=== PATIENT | male | born 1965 | race Caucasian/White ===

== ENCOUNTER 2024-08-30 10:07 | Emergency (ER) | payer MEDICARE, SELFPAY ==
--- NOTE | ~2024-08-30 | XR_ITS ---
EXAMINATION: XR ankle RT min 3V DATE: 08/30/2024 11:52 INDICATION: Right ankle injury and pain TECHNIQUE: Anteroposterior, oblique, mortise, and lateral views of the right ankle were obtained. COMPARISON: None. FINDINGS: Age-indeterminate mildly distracted small avulsion fracture at the tip of the medial malleolus. No ot her fractures identified. Joint spaces are normal. Small right ankle joint effusion. Moderate-sized A chilles and plantar calcaneal spurs. There are soft tissue swelling about the lateral malleolus. IMPRESSION: 1. Small mildly distracted avulsion fracture fragment at the tip of the medial malleolus, age-indeter minate but would favor chronic. 2. Soft tissue swelling about the lateral malleolus and small ankle joint effusion. Reviewed, dictated and finalized at location B. IMPRESSION: 1. Small mildly distracted avulsion fracture fragment at the tip of the medial malleolus, age-indeterminate but would favor chronic. 2. Soft tissue swelling about the lateral malleolus and small ankle joint effus ion.
[2024-08-30 10:27] VITALS: BP 167/90; PULSE 71; RESP 20; TEMP 36.5; O2SAT 96
--- OUTSIDE RECORDS SUMMARY | 2024-08-30 11:24 | XMS_ITS | Referral Summary ---
Author Organization [facility] Address [address] [place] [id number] Care Team Providers Care Machine Design Checker Name Role Phone Justin Myles MD Primary Care Provider [phone] Encounters Date Type Department Care Team Description 08/17/2024 Results Follow-Up [facility] Medical [facility] Internal Medicine [address] [place] [phone] Justin Myles MD 08/10/2024 Orders Only [facility] Health Information Management [address] [place] [phone] Justin Myles MD 08/10/2024 Telephone [facility] Medical [facility] Internal Medicine [address] [place] [phone] Justin Myles MD Medication Request 07/15/2024 8:00 AM CDT Office Visit [facility] Medical [facility] Internal Medicine [address] [place] [phone] Justin Myles MD Coronary artery disease involving [place] coronary artery of [place] heart without angina pectoris (Primary Dx); Dyslipidemia; Hypertension, essential; Obstructive sleep apnea; Tobacco abuse; Screening for lung cancer; Anxiety; Prostate cancer screening; Actinic keratosis; Common cold; Primary osteoarthritis of both knees 07/08/2024 Orders Only [facility] Health Information Management [address] [place] [address] Justin Myles MD from Last 3 Months Allergies Active Allergy Reactions Criticality Noted Date Comments Iodinated Contrast Media Unknown High 10/26/2018 Niacin Unknown 10/26/2018 Prednisone Unknown High 10/26/2018 Sertraline Unknown Medium 01/16/2024 Nightmares Medications fluticasone propionate (FLONASE) 50 mcg/actuation nasal spray 1 spray daily Active omega 8-mbg-ero-fish oil 1,000 mg (120 mg-180 mg) capsule Take 2 capsules (2,000 mg total) by mouth 2 (two) times a day 0 Active aspirin 325 mg tablet Take 1 tablet (325 mg total) by mouth daily Active metoprolol tartrate (LOPRESSOR) 25 mg immediate release tablet TAKE 1 TABLET BY MOUTH TWICE A DAY 200 tablet 1 4 Active clopidogreL (PLAVIX) 75 mg tablet TAKE 1 TABLET BY MOUTH EVERY DAY 100 tablet 1 4 Active rosuvastatin (CRESTOR) 10 mg tablet TAKE 1 TABLET BY MOUTH EVERY DAY 100 tablet 1 4 Active traMADoL (ULTRAM) 50 mg tablet Take 1 tablet (50 mg total) by mouth every 8 (eight) hours as needed for pain 21 tablet 5 Active albuterol HFA (PROVENTIL HFA,VENTOLIN HFA,PROAIR HFA) 90 mcg/actuation inhaler INHALE 2 PUFFS BY MOUTH EVERY 8 HOURS NEEDED FOR WHEEZING 25.5 each 5 Active ramipriL (ALTACE) 5 mg capsule Take 1 capsule (5 mg total) by mouth daily 90 capsule 1 5 025 Active enalapril (VASOTEC) 20 mg tablet Please specify directions, refills and quantity 90 tablet 1 4 025 Discontinued Active Problems Problem Noted Date Diagnosed Date Hidradenitis 03/22/2024 Assessment & Plan (03/22/2024 8:54 AM PRODUCT CONSULTANT): Patient has hidradenitis. The lesions in the right axillary area are healing well and now he has new lesion in the left axillary area. We will start him on doxycycline 100 mg b.i.d. for 10 days and advised to keep the area dry all the time and will make him a referral to see a brownfield program coordinator for further management of hidradenitis Abscess 03/08/2024 Assessment & Plan (03/08/2024 12:15 PM PRODUCT CONSULTANT): Patient has an abscess in the right armpit area. He said it drained large amount of pus. Currently there is healing abscess with no drainage or fluctuation. There is swollen lymph nodes. Will start him on Augmentin 875 mg twice daily for 15 days. Patient was advised to keep that area dry and clean all the time. Screening for lung cancer 01/16/2024 Assessment & Plan (07/15/2024 7:20 AM CDT): Lung scan was ordered. Patient did not have it done. He understands risks including cancer. Assessment & Plan (01/16/2024 8:59 AM CDT): Discussed lung cancer screening with patient and he agrees to proceed. Lung scan was ordered Anxiety 07/16/2023 Assessment & Plan (01/16/2024 8:58 AM CDT): Patient stopped Zoloft because it caused him nightmares. He likes to try different medication. We will start him on Cymbalta 20 mg daily. He will call for persistent symptoms Assessment & Plan (07/16/2023 8:57 AM CDT): Patient with increased anxiety and stress because family issues. Will start him on Zoloft 50 mg daily. Patient to call us back in 1 month for persistent symptoms. Actinic keratosis 01/15/2023 Assessment & Plan (07/15/2024 10:31 AM CDT): Patient has actinic keratosis lesion on the right shoulder and 1 on the left ear and both were treated liquid nitrogen. Patient is followed by brownfield program coordinator on a regular basis. Assessment & Plan (01/15/2023 9:19 AM CDT): Patient has actinic keratosis lesion on the right shoulder. It was treated with liquid nitrogen BMI 30.0-30.9,adult 07/15/2022 Non-recurrent acute serous otitis media of right ear 07/15/2022 Assessment & Plan (07/15/2022 12:16 PM CDT): Patient with otitis media. Will start him on Ceftin 250 mg twice daily for 7 days. Call for persistent symptoms. Acute pain of right shoulder 01/03/2021 Assessment & Plan (01/03/2021 8:47 AM CDT): Patient sprained his right shoulder. Exam is essentially unremarkable with no tenderness and he has full range of motion. He can take tramadol as needed for pain. Patient will call if he has persistent symptoms. Common cold 06/15/2019 Assessment & Plan (07/15/2024 10:32 AM CDT): Patient with cold symptoms for over a week with thick yellow mucus. Will start him on amoxicillin 500 mg 3 times daily for 7 days. Call for persistent symptoms Assessment & Plan (01/16/2024 8:58 AM CDT): Patient with sinus complaints for the last 2 weeks. Will start him on amoxicillin 500 mg 3 times daily for 7 days and he will call for persistent symptoms Assessment & Plan (01/15/2023 9:19 AM CDT): Patient with upper respiratory infection. He has colored mucus. Will start him on amoxicillin 500 mg 3 times daily for 10 days for possible sinusitis. Assessment & Plan (01/03/2021 8:46 AM CDT): Will start him on amoxicillin 500 mg 3 times daily for 7 days and he will call for persistent symptoms Assessment & Plan (06/15/2019 9:29 AM PRODUCT CONSULTANT): The patient has upper respiratory infection and he will be started on amoxicillin 500 mg 3 times daily for 10 days and we will refill Proventil inhaler as needed for cough. Colon cancer screening 06/15/2019 Assessment & Plan (07/15/2023 5:00 PM CDT): Advised the patient to have Cologuard test done as soon as possible. He understands risk of colon cancer Assessment & Plan (07/15/2022 12:14 PM CDT): Advised the patient to have Cologuard test done as soon as possible. He understands risk of colon cancer Assessment & Plan (01/15/2022 8:57 AM CDT): Patient did not have colonoscopy done. He understands risk including cancer. Advised to call the supply chain program manager office and schedule an appointment. Assessment & Plan (07/03/2021 8:32 AM PRODUCT CONSULTANT): We will order colo guard test again. He understands risk of cancer Assessment & Plan (07/03/2020 8:51 AM PRODUCT CONSULTANT): We ordered colo guard test again Assessment & Plan (01/04/2020 9:54 AM CDT): The patient was advised to do the Cologuard test as soon as possible and he understands the risk of colon cancer Assessment & Plan (06/15/2019 9:30 AM PRODUCT CONSULTANT): The patient declined colonoscopy. We ordered colo guard in the past but he did not do the test. We will reorder the test and the patient understands the risks including cancer Tobacco abuse 02/24/2019 Assessment & Plan (07/15/2024 7:21 AM CDT): Discussed again the importance of complete smoking cessation. Patient is not interested at this time Assessment & Plan (01/16/2024 8:59 AM CDT): Discussed again the importance of complete smoking cessation. Patient is not interested at this time Assessment & Plan (01/15/2023 7:52 AM CDT): Discussed again the importance of complete smoking cessation. Assessment & Plan (07/15/2022 7:50 AM CDT): Discussed smoking cessation and different methods to help with that. Discussed the risks of smoking including COPD, CAD and lung cancer etc. Total time spent was 4 minutes. Assessment & Plan (01/15/2022 8:57 AM CDT): Discussed smoking cessation and different methods to help with that. Discussed the risks of smoking including COPD, CAD and lung cancer etc. Total time spent was 3 minutes. Assessment & Plan (07/03/2021 8:34 AM PRODUCT CONSULTANT): Discussed smoking cessation and different methods to help with that. Discussed the risks of smoking including COPD, CAD and lung cancer etc. Total time spent was 4 minutes. Assessment & Plan (01/03/2021 8:46 AM CDT): Discussed smoking cessation and different methods to help with that. Discussed the risks of smoking including COPD, CAD and lung cancer etc. Total time spent was 3 minutes. Assessment & Plan (07/03/2020 8:51 AM PRODUCT CONSULTANT): Discussed smoking cessation and different methods to help with that. Discussed the risks of smoking including COPD, CAD and lung cancer etc. Total time spent was 4 minutes. Assessment & Plan (01/04/2020 9:54 AM CDT): Discussed smoking cessation and different methods to help with that. Discussed the risks of smoking including COPD, CAD and lung cancer etc. Total time spent was 4 minutes. Assessment & Plan (06/15/2019 9:29 AM PRODUCT CONSULTANT): The patient said that he smokes less than 10 cigarettes daily. Discussed smoking cessation and different methods to help with that. Discussed the risks of smoking including COPD, CAD and lung cancer etc. Total time spent was 3 minutes. Primary osteoarthritis of both knees 10/20/2017 Assessment & Plan (07/15/2024 10:32 AM CDT): Managed by the orthopedic doctor Assessment & Plan (01/16/2024 7:31 AM CDT): He takes tramadol p.r.n. with good relief Assessment & Plan (07/15/2023 5:01 PM CDT): He takes tramadol p.r.n. with good relief Assessment & Plan (01/15/2022 8:57 AM CDT): He takes tramadol p.r.n. with good relief Assessment & Plan (07/03/2021 8:34 AM PRODUCT CONSULTANT): Patient takes tramadol on occasional basis with good relief Assessment & Plan (01/03/2021 8:46 AM CDT): He takes tramadol as needed with good relief relief Assessment & Plan (07/03/2020 8:51 AM PRODUCT CONSULTANT): Patient uses tramadol on occasional basis with good relief Assessment & Plan (01/04/2020 9:54 AM CDT): The patient takes tramadol off and on with good relief History of myocardial infarction 11/13/2015 Obstructive sleep apnea 11/13/2015 Assessment & Plan (07/15/2024 7:20 AM CDT): Patient does not use CPAP machine on regular basis. He understands risks including congestive heart failure and pulmonary hypertension etc. Assessment & Plan (01/16/2024 7:30 AM CDT): Patient does not use CPAP machine on regular basis. He understands risks including congestive heart failure and pulmonary hypertension etc. Assessment & Plan (07/15/2023 5:00 PM CDT): Patient does not use CPAP machine on regular basis. He understands risks including congestive heart failure and pulmonary hypertension etc. Assessment & Plan (01/15/2023 7:52 AM CDT): Patient does not use CPAP machine on regular basis. He understands risks including congestive heart failure and pulmonary hypertension etc. Assessment & Plan (07/15/2022 7:50 AM CDT): Patient does not use CPAP machine on regular basis Assessment & Plan (01/15/2022 8:57 AM CDT): Patient does not use CPAP machine on regular basis Assessment & Plan (07/03/2021 8:33 AM PRODUCT CONSULTANT): He does not use CPAP machine. He understands risks including congestive heart failure Assessment & Plan (01/03/2021 8:46 AM CDT): Patient does not use CPAP machine and he understands the risks Assessment & Plan (07/03/2020 8:51 AM PRODUCT CONSULTANT): Patient with history of obstructive sleep apnea. He does not use CPAP machine. He is not interested. He understands risks. S/P coronary artery stent placement 11/13/2015 CAD (coronary artery disease) 11/08/2015 Assessment & Plan (07/15/2024 7:20 AM CDT): Status post stent placement. Continue current medications. Follow up with the furniture and bedding inspector Assessment & Plan (01/16/2024 8:58 AM CDT): Status post stent placement. Continue current medications. Follow up with the furniture and bedding inspector Assessment & Plan (07/15/2023 4:59 PM CDT): Status post stent placement. Continue current medications. Follow up with the furniture and bedding inspector Assessment & Plan (01/15/2023 7:51 AM CDT): Status post stent placement. Continue current medications. Follow up with the furniture and bedding inspector Assessment & Plan (07/15/2022 7:49 AM CDT): Status post stent placement. Continue current medications. Follow up with the furniture and bedding inspector Assessment & Plan (01/15/2022 8:56 AM CDT): Status post stent placement. Continue current medications. Follow up with the furniture and bedding inspector Assessment & Plan (07/03/2021 8:32 AM PRODUCT CONSULTANT): Status post stent placement. Continue aspirin and Plavix. Advised to follow up with the furniture and bedding inspector. Discussed importance of smoking cessation Assessment & Plan (01/03/2021 8:46 AM CDT): Status post angioplasty. He is on aspirin and Plavix. Advised to follow-up with furniture and bedding inspector Assessment & Plan (07/03/2020 8:50 AM PRODUCT CONSULTANT): Status post stent placement. Discussed compliance with medications. Patient is followed by the furniture and bedding inspector. Assessment & Plan (01/04/2020 9:53 AM CDT): Status post stent placement have. He is maintained on aspirin and Plavix and followed by the furniture and bedding inspector. He is asymptomatic. We discussed smoking cessation Assessment & Plan (06/15/2019 9:29 AM PRODUCT CONSULTANT): Status post stent placement 7 years ago. He is maintained on aspirin and Plavix. He is asymptomatic. Dyslipidemia 11/08/2015 Assessment & Plan (07/15/2024 7:20 AM CDT): Controlled on current medications. Continue low-fat diet. Will continue to monitor . Assessment & Plan (01/16/2024 7:30 AM CDT): Controlled on current medications. Continue low-fat diet. Will continue to monitor . Assessment & Plan (07/15/2023 5:00 PM CDT): Controlled on current medications. Continue low-fat diet. Will continue to monitor . Assessment & Plan (01/15/2023 7:51 AM CDT): Controlled on current medications. Continue low-fat diet. Will continue to monitor . Assessment & Plan (07/15/2022 7:49 AM CDT): Controlled on current medications. Continue low-fat diet. Will continue to monitor . Assessment & Plan (01/15/2022 8:56 AM CDT): Controlled on current medications. Continue low-fat diet. Will continue to monitor . Assessment & Plan (07/03/2021 8:32 AM PRODUCT CONSULTANT): Controlled on current medications. Continue low-fat diet. Will continue to monitor . Assessment & Plan (01/03/2021 8:46 AM CDT): Controlled on current medications. Continue low-fat diet. Will continue to monitor . Assessment & Plan (07/03/2020 8:50 AM PRODUCT CONSULTANT): Controlled on current medications. Continue low-fat diet. Will continue to monitor . Assessment & Plan (01/04/2020 9:53 AM CDT): Controlled on current medications. Continue low-fat diet. Will continue to monitor . Advised to do the blood work as soon as possible. Discussed the risk of noncompliance with medical recommendations Assessment & Plan (06/15/2019 9:29 AM PRODUCT CONSULTANT): Controlled on current medications. Continue low-fat diet. Will continue to monitor . Hypertension, essential 11/08/2015 Assessment & Plan (07/15/2024 7:20 AM CDT): Continue current medications. Discussed low-salt diet. Discussed exercise on regular basis. Will continue to monitor Assessment & Plan (01/16/2024 7:30 AM CDT): Continue current medications. Discussed low-salt diet. Discussed exercise on regular basis. Will continue to monitor Assessment & Plan (07/15/2023 5:00 PM CDT): Continue current medications. Discussed low-salt diet. Discussed exercise on regular basis. Will continue to monitor Assessment & Plan (01/15/2023 7:51 AM CDT): Continue current medications. Discussed low-salt diet. Discussed exercise on regular basis. Will continue to monitor Assessment & Plan (07/15/2022 7:49 AM CDT): Continue current medications. Discussed low-salt diet. Discussed exercise on regular basis. Will continue to monitor Assessment & Plan (01/15/2022 8:56 AM CDT): Continue current medications. Discussed low-salt diet. Discussed exercise on regular basis. Will continue to monitor Assessment & Plan (07/03/2021 8:33 AM PRODUCT CONSULTANT): Continue current medications. Discussed low-salt diet. Discussed exercise on regular basis. Will continue to monitor Assessment & Plan (01/03/2021 8:46 AM CDT): Continue current medications. Discussed low-salt diet. Discussed exercise on regular basis. Will continue to monitor Assessment & Plan (07/03/2020 8:51 AM PRODUCT CONSULTANT): Continue current medications. Discussed low-salt diet. Discussed exercise on regular basis. Will continue to monitor Assessment & Plan (01/04/2020 9:53 AM CDT): Continue current medications. Discussed low-salt diet. Discussed exercise on regular basis. Will continue to monitor Allergic rhinitis 09/14/2015 Assessment & Plan (07/03/2021 8:33 AM PRODUCT CONSULTANT): He uses Flonase on regular basis with good results Resolved Problems Problem Noted Date Diagnosed Date Resolved Date Smoking 11/13/2015 02/24/2019 Overview (01/26/2019): Counseled for smoking cessation Immunizations Immunization Administration Dates Next Due DTaP 11/15/2013 Influenza, Unspecified 03/08/2024(Deferr ed: Patient decision),02/06/2023(Deferred: Patient decision),01/15/2023(Deferred: Patient decision) Social History Tobacco Use Types Packs/Day Years Used Date Smoking Tobacco: Every Day Cigarettes 2 46.3 Started: 1977 Passive Smoke Exposure: Current Smokeless Tobacco: Never Tobacco Cessation:Ready to Q uit: No; Counseling Given: No AUDIT-C Answer Date Recorded Q1: How often do you have a drink containing alcohol? Never 07/15/2024 Q2: How many drinks containi ng alcohol do you have on a typical day when you are drinking? Patient does not drink Q3: How often do you have si x or more drinks on one occasion? Never 07/15/2024 PHQ-2 Answer Date Recorded PHQ-2 Total Score (If total score is 3 or more points, staff should administer the PHQ-9) 0 07/15/2024 Sex and Gender Information Value Date Recorded Sex Assigned at Not on file Legal Sex Male 4:28 PM PRODUCT CONSULTANT Gender Identity Male 08/19/2023 5:41 PM CDT Sexual Orientation Not on file Last Filed Vital Signs Vital Sign Reading Time Taken Comments Blood Pressure 130/74 07/15/2024 8:24 AM CDT Pulse 66 07/15/2024 8:24 AM CDT Temperature 37 C (98.6 F) 07/15/2024 8:24 AM CDT Respiratory Rate 16 07/15/2024 8:24 AM CDT Oxygen Saturation 96% 07/15/2024 8:24 AM CDT Inhaled Oxygen Concentration - - Weight 113 kg (249 lb 1.6 oz) 07/15/2024 8:24 AM CDT Height 190.5 cm (6' 3 ) 07/15/2024 8:24 AM CDT Body Mass Index 31.14 07/15/2024 8:24 AM CDT Plan of Treatment Not on file Procedures Procedure Name Priority Date/Time Associated Diagnosis Comments SCAN - RADIOLOGY/IMAGING 08/10/2024 SCAN - RADIOLOGY/IMAGING 07/08/2024 HEPATITIS C ANTIBODY Routine 01/16/2024 9:21 AM CDT Encounter for hepatitis C screening test for low risk patient STOOL DNA COLOGUARD Routine 08/14/2023 7:05 AM CDT Colon cancer screening PSA SCREEN Routine 07/15/2023 6:12 AM CDT Prostate cancer screening from Last 3 Months or Most Recently Relevant to Health Maintenance Results * SCAN - RADIOLOGY/IMAGING (08/10/2024) Anatomical Region Laterality Modality Other us Justin Myles MD Final Resul t * SCAN - RADIOLOGY/IMAGING (07/08/2024) Anatomical Region Laterality Modality Other us Justin Myles MD Final Resul t * Hepatitis C antibody Blood (01/16/2024 9:21 AM CDT) Hep C Ab Nonreactive Nonreactive Comment: Antibodies to HCV not detected. Does NOT exclude the possibility of recent exposure to HCV. Current interpretive data was last revised on 22 Interpretive Data Nonreactive: Antibodies to HCV not detected. Does NOT exclude the possibility of recent exposure to HCV. Equivocal: Equivocal for HCV antibodies. Supplemental molecular testing will be automatically performed to determine infection status in accordance with current CDC screening recommendations. Reactive: Positive for HCV antibodies. This may represent current or past HCV infection. Supplemental molecular testing will be automatically performed to determine current infection status in accordance with current CDC screening recommendations. Interpretive data was last revised on 2019. Blood 01/16/2024 9:21 AM CDT 01/16/2024 9:45 AM CDT us Justin Myles MD LAB MICROBIOLOGY - GENERAL ORDERABLES Final Result [id number] [facility] Department [place] [address] * Stool DNA - Cologuard (08/14/2023 7:05 AM CDT) Pathologist [facility] Stool DNA - Cologuard Negative Negative [employer] (CLIA #:[id number]) Comment: NEGATIVE TEST RESULT. A negative Cologuard result indicates a low likelihood that a colorectal cancer (CRC) or advanced adenoma (adenomatous polyps with more advanced pre-malignant features) is present. The chance that a person with a negative Cologuard test has a colorectal cancer is less than 1 in 1500 (negative predictive value >99.9%) or has an advanced adenoma is less than 5.3% (negative predictive value 94.7%). These data are based on a prospective cross-sectional study of 10,000 individuals at average risk for colorectal cancer who were screened with both Cologuard and colonoscopy. (Leanna Michael et al, N Engl J Med 2014;370(14):9295-8931) The normal value (reference range) for this assay is negative. COLOGUARD RE-SCREENING RECOMMENDATION: Periodic colorectal cancer screening is an important part of preventive healthcare for asymptomatic individuals at average risk for colorectal cancer. Following a negative Cologuard result, the [place] [employer] and U.S. Multi-Society Task Force screening guidelines recommend a Cologuard re-screening interval of 3 years. References: [place] [employer] Guideline for Colorectal Cancer Screening: https://www.cancer.org/cancer/vdhqd-gryfgv-sqoofa/uphlgjkit-dmuulxyyi-dlamctf/ac s-rec ommendations.html.; Guido DK, Savana RUFFIN, Nicki BrunoK, Colorectal Cancer Screening: Recommendations for Physicians and Patients from the U.S. Multi-Society Task Force on Colorectal Cancer Screening , Am J Gastroenterology 2017; 112:7348-7504. TEST DESCRIPTION: Composite algorithmic analysis of stool DNA-biomarkers with hemoglobin immunoassay. Quantitative values of individual biomarkers are not reportable and are not associated with individual biomarker result reference ranges. Cologuard is intended for colorectal cancer screening of adults of either sex, 45 years or older, who are at average-risk for colorectal cancer (CRC). Cologuard has been approved for use by the U.S. FDA. The performance of Cologuard was established in a cross sectional study of average-risk adults aged 50-84. Cologuard performance in patients ages 45 to 49 years was estimated by sub-group analysis of near-age groups. Colonoscopies performed for a positive result may find as the most clinically significant lesion: colorectal cancer [4.0%], advanced adenoma (including sessile serrated polyps greater than or equal to 1cm diameter) [20%] or non- advanced adenoma [31%]; or no colorectal neoplasia [45%]. These estimates are derived from a prospective cross-sectional screening study of 10,000 individuals at average risk for colorectal cancer who were screened with both Cologuard and colonoscopy. (Leanna Ramos al, N Engl J Med 2014;370(14):0178-0747.) Cologuard may produce a false negative or false positive result (no colorectal cancer or precancerous polyp present at colonoscopy follow up). A negative Cologuard test result does not guarantee the absence of CRC or advanced adenoma (pre-cancer). The current Cologuard screening interval is every 3 years. ([place] [employer] and [employer]). Cologuard performance data in a 10,000 patient pivotal study using colonoscopy as the reference method can be accessed at the following location: www.[email or web address]/results. Additional description of the Cologuard test process, warnings and precautions can be found at [email or web address]. Stool 08/14/2023 7:05 AM CDT 08/15/2023 10:18 AM CDT Justin Myles MD LAB BODY FLUIDS AND STOOLS ORDERABLES Final Result [employer] (CLIA #:[id number]) [place] [address] * PSA screen (07/15/2023 6:12 AM CDT) PSA-Total 0.97 <=3.90 ng/mL Comment: Interpretive Data AGE SEX REFERENCE INTERVAL 0 minutes-150 years Female None 0 minutes-49 years Male None 50-59 years Male 0-3.90 60-69 years Male 0-5.40 70-79 years Male 0-6.20 80-150 years Male 0-6.20 The Juno PSA Total assay procedure was used. Results from different manufacturers or methods may not be comparable. Serial testing should be performed using the same method. Current interpretive data last revised 21. Blood 07/15/2023 6:12 AM CDT 07/15/2023 6:35 AM CDT Justin Myles MD LAB BLOOD ORDERABLES Final Result [facility] [address] [facility] Department [place] [address] from Last 3 Months or Most Recently Relevant to Health Maintenance Insurance [facility] [employer] MEDICARE GOLD Care Teams Machine Design Checker Relationship Specialty Start Date End Date Justin Myles MD [address] [place] [address] PCP - General Internal Medicine 07/27/18
--- OUTSIDE RECORDS SUMMARY | 2024-08-30 11:24 | XMS_ITS | Encounter Summary ---
Author Organization [facility] Healthcare Address [address] [place] [address] Care Team Providers Care Developing Machine Operator Name Role Phone Justin Myles MD Primary Care Provider [phone] Encounter Details Date Type Department Care Team (Late st Contact Info) Description 08/17/2024 Results Follow-Up [facility] Internal Medicine [address] [place] [phone] Justin Myles MD [address] [place] [id number] Social History Tobacco Use Types Packs/Day Years Used Date Smoking Tobacco: Every Day Cigarettes 2 46.3 Started: 1977 Passive Smoke Exposure: Current Smokeless Tobacco: Never AUDIT-C Answer Date Recorded Q1: How often [...] on file Legal Sex Male 4:28 PM [employer]OM[employer] Gender Identity Male 08/19/2023 5:41 PM CDT Sexual Orientation Not on file documented as of this encounter Plan of Treatment Not on file documented as of this encounter Visit Diagnoses Not on filedocumented in this encounter Care Teams Developing Machine Operator Relationship Specialty Start Date End Date Justin Myles MD [address] [place] [address] [place] [id number] PCP - General Internal Medicine 07/27/18 documented as of this encounter
--- OUTSIDE RECORDS SUMMARY | 2024-08-30 11:24 | XMS_ITS | Clinical Summary ---
Author Organization [facility] Address [address] [place] [id number] Care Team Providers Care Information Technology Manager Name Role Phone Justin Myles MD Primary Care Provider [phone] Allergies Active Allergy Reactions Criticality Noted Date Comments Gadolinium Derivatives Unknown 04/19/2015 Iodinated Contrast Media Unknown High 10/26/2018 Niacin Unknown 10/26/2018 Prednisone Unknown High 10/26/2018 Sertraline Unknown Medium 01/16/2024 Nightmares Medications albuterol sulfate HFA 108 (90 Base) MCG/ACT inhaler INHALE 2 PUFFS BY MOUTH EVERY 8 HOURS NEEDED FOR WHEEZING 4 Active aspirin 325 MG tablet Aspirin 325 MG Oral [id number] 15Active Active clopidogrel (PLAVIX) 75 MG tablet Take 1 tablet (75 mg total) by mouth daily. 5 Active doxycycline hyclate (VIBRAMYCIN) 100 MG capsule TAKE 1 TABLET/CAPSULE (100 MG TOTAL) BY MOUTH 2 (TWO) TIMES A DAY FOR 10 DAYS 4 Active DULoxetine (CYMBALTA) 20 MG capsule Take 1 capsule (20 mg total) by mouth daily. 4 Active enalapril (VASOTEC) 20 MG tablet Please specify directions, refills and quantity 4 Active fluticasone propionate (FLONASE) 50 MCG/ACT nasal spray 1 spray daily. Activ e hydrocortisone 2.5 % cream Insert into the rectum 3 (three) times a day as needed for hemorrhoids (rectal discomfort) Apply to affected areas 4 Active metoprolol tartrate (LOPRESSOR) 25 MG tablet Take 1 tablet (25 mg total) by mouth 2 (two) times daily. 5 Active fish oil (OMEGA-3 FATTY ACID) 1000 MG Cap capsule Fish Oil 1000 MG Oral [id number] 015Active Active ramipril (ALTACE) 5 MG capsule Take 1 capsule (5 mg total) by mouth daily. 4 Active rosuvastatin (CRESTOR) 10 MG tablet 5 Active SODIUM FLUORIDE 5000 PPM 1.1 % Paste BRUSH ONCE DAILY FOR 2 MINUTES AND SPIT OUT AFTER USE. DO NOT EAT, DRINK, OR RINSE MOUTH FOR 30 MINS 4 Active traMADol (ULTRAM) 50 MG tablet take 1 tablet (50 mg total) by mouth every 8 (eight) hours as needed for pain. 4 Active hydrocortisone (ANUSOL-HC) 2.5 % rectal cream INSERT IN THE RECTUM 3 TIMES A DAY NEEDED FOR HEMORRHOID/RECTA L DISCOMFORT APPLY TO AFFECTED AREA 4 Active Hospital, Clinic, or Other Facility Administered Medication Ordered Dose Route Frequency Start Date End Date Status hyaluronate sodium (EUFLEXXA) injection 20 mgIndications:Primary osteoarthritis of left knee 20 mg IX Once 08/03/2024 08/04/19 25 Ended hyaluronate sodium (EUFLEXXA) injection 20 mgIndications:Primary osteoarthritis of right knee 20 mg IX Once 08/03/2024 08/03/2024 Ended hyaluronate sodium (EUFLEXXA) injection 20 mgIndications:Primary osteoarthritis of left knee 20 mg IX Once 08/10/2024 08/11/19 25 Ended hyaluronate sodium (EUFLEXXA) injection 20 mgIndications:Primary osteoarthritis of right knee 20 mg IX Once 08/10/2024 08/10/2024 Ended hyaluronate sodium (EUFLEXXA) injection 20 mgIndications:Primary osteoarthritis of left knee 20 mg IX Once 08/17/2024 08/18/19 25 Ended hyaluronate sodium (EUFLEXXA) injection 20 mgIndications:Primary osteoarthritis of right knee 20 mg IX Once 08/17/2024 08/17/2024 Ended Active Problems Problem Noted Date Diagnosed Date Primary osteoarthritis of left knee 07/08/2024 Primary osteoarthritis of right knee 07/08/2024 Encounters Date Type Department Care Team Description 08/17/2024 7:40 AM CDT Office Visit [facility] Orthopedic & Sports Medicine - [place] [address] [place] [address] Mendoza Luna PA-C Follow Up (BL Knee Euflexxa 3) 08/17/2024 Scan [facility] Scanned, [facility] 08/17/2024 Travel 08/10/2024 7:40 AM CDT Office Visit [facility] - [place] [address] [place] [address] Mendoza Luna PA-C Follow Up (BL Knee Euflexxa 2) 08/10/2024 Scan [facility] SRVCS Scanned, [facility] 08/10/2024 Travel 08/06/2024 Orders Only [facility] - [place] [address] [place] [address] Mendoza Luna PA-C 08/03/2024 7:40 AM CDT Office Visit [facility] - [place] [address] [place] [address] Mendoza Luna PA-C Follow Up (BL Knees Euflexxa 1) 08/03/2024 Orders Only [facility] - [place] [address] [place] [address] Mendoza Luna PA-C 08/03/2024 Scan [facility] Scanned, [facility] 08/03/2024 Travel 07/08/2024 8:00 AM CONSTRUCTION CREW MEMBER Office Visit [facility] - [place] [address] [place] [address] Mendoza Luna PA-C New Patient (Bilateral knees) 07/08/2024 Scan [facility] Scanned, [facility] 07/08/2024 Travel 07/01/2024 Orders Only [facility] - [place] [address] [place] [address] Mendoza Luna PA-C from Last 3 Months Family History Medical History Relation Comments Cancer Father Diabetes Father Other Father suicide Father Cancer Mother Diabetes Mother Kidney Disease Mother Liver Disease Mother liver failure Sister Relation Status Comments Father Mother Sister Social History Tobacco Use Types Packs/Day Years Used Date Smoking Tobacco: Every Day Cigarettes Passive Smoke Exposure: Never Smokeless Tobacco: Never Tobacco Cessation:Ready to Q uit: Yes; Counseling Given: Yes Alcohol Use Standard Drinks/Week Comments Not Currently 0 (1 standard drink = 0.6 oz pur e alcohol) PHQ-2 Answer Date Recorded Patient Health Questionnaire-2 Score 0 08/03/2024 Sex and Gender Information Value Date Recorded Sex Assigned at Male 07/08/2024 8:10 AM [employer]BER Legal Sex Male 7:26 PM CDT Gender Identity Not on file Sexual Orientation Not on file Last Filed Vital Signs Vital Sign Reading Time Taken Comments Blood Pressure 129/75 08/17/2024 7:48 AM CDT Pulse 78 08/17/2024 7:48 AM CDT Temperature 37 C (98.6 F) 08/17/2024 7:48 AM CDT Respiratory Rate - - Oxygen Saturation 97% 08/17/2024 7:48 AM CDT Inhaled Oxygen Concentration - - Weight 114.9 kg (253 lb 3.2 oz) 08/17/2024 7:48 AM CDT Height 190.5 cm (6' 3 ) 08/17/2024 7:48 AM CDT Body Mass Index 31.65 08/17/2024 7:48 AM CDT Plan of Treatment Health Maintenance Due Date Last Done Comments Colorectal Cancer Screening Colonoscopy (10 Years) 1966 Annual Physical 1969 Hepatitis C 1984 Hepatitis B Vaccines (1 of 3 - 19+ 3-dose series) 1985 Pneumococcal Vaccine: 50+ Ye ars (1 of 2 - PCV) 1985 Zoster Vaccines (1 of 2) 2016 DTaP, Tdap and Td Vaccines ( 2 - Tdap) 11/16/2023 11/15/2013 COVID-19 Vaccine ( - 2023-2 5 season) 2024 PHQ-2 (Physician [facility]) Completed 08/03/2024 Meningococcal B Vaccine Aged Out No l onger eligible based on patient's age to complete this topic Meningococcal Vaccine Aged Out No brayden chantell eligible based on patient's age to complete this topic RSV Immunizations Under 20 Months Aged Out No longer eligible based on patient's age to complete this topic Procedures Procedure Name Priority Date/Time Associated Diagnosis Comments XR SHOULDER RT 3V Routine 08/10/2024 7:3 8 AM CDT Right shoulder pain, unspecified chronicity XR KNEE LT 3V Routine 07/08/2024 7:49 AM [employer]STRU[employer]BER Pain in both knees, unspecified chronicity XR KNEE RT 3V Routine 07/08/2024 7:49 AM [employer]STRUCTION [employer] MEMBER Pain in both knees, unspecified chronicity from Last 3 Months Results * XR SHOULDER RT 3V (08/10/2024 7:38 AM CDT) Anatomical Region Laterality Modality Shoulder Radiographic Aminata ging 08/10/2024 7:41 AM CDT Impressions 08/10/2024 7:41 AM CDT IMPRESSION: No acute findings Ordered By: MENDOZA LUNA Interpreted By: Trey Fowler MD, 08/10/2024 7:41 AM Narrative 08/10/2024 7:41 AM CDT 3 VIEWS OF THE RIGHT SHOULDER CLINICAL HISTORY: Pain COMPARISON: None 3 views of the right shoulder demonstrate the bony elements to be intact. There is no evidence of fracture or dislocation. The surrounding soft tissues appear normal. Procedure Note Trey Fowler MD - 08/10/2024 3 VIEWS OF THE RIGHT SHOULDER CLINICAL HISTORY: Pain COMPARISON: None 3 views of the right shoulder demonstrate the bony elements to be intact.There is no evidence of fracture or dislocation. The surrounding softtissues appear normal. IMPRESSION: No acute findings Ordered By: MENDOZA LUNA Interpreted By: Trey Fowler MD, 08/10/2024 7:41 AM us Mendoza Luna PA-C GENERAL IMAGING Final Result * XR KNEE LT 3V (07/08/2024 7:49 AM CONSTRUCTION CREW MEMBER) Anatomical Region Laterality Modality Knee Radiographic Aminata ging 07/08/2024 7:49 AM CONSTRUCTION CREW MEMBER Narrative 07/08/2024 7:56 AM CONSTRUCTION CREW MEMBER Examination: XR KNEE LT 3V, XR KNEE RT 3V Exam time: 07/08/2024 7:49 AM Clinical history: Bilateral knee pain Comparison: 02/14/2015 left knee Technique: Upright AP and lateral views of each knee. Bilateral sunrise views. Findings: On the left, medial and lateral joint spaces appear within normal limits. No evidence of marginal osseous defects. Patellofemoral joint space appears unremarkable. Chronic appearing enthesophyte at the patellar tendon insertion on the patella. No evidence of fracture or acute osseous abnormality. No radiographic evidence of joint effusion. Tiny hypertrophic spur dorsal superior patella. On the right, chronic-appearing enthesophyte patellar tendon insertion on the patella and the quadriceps tendon insertion on the patella. Tiny hypertrophic spur dorsal superior patella. Medial and lateral joint spaces appear within normal limits. Patellofemoral joint space appears unremarkable. No evidence of fracture or acute osseous abnormality. IMPRESSION: 1. No acute abnormality identified involving either knee. 2. Chronic changes as described. Referred By: Interpreted By: Skyler Soria MD, 07/08/2024 7:52 AM Procedure Note Skyler Soria MD - 07/08/2024 Examination: XR KNEE LT 3V, XR KNEE RT 3V Exam time: 07/08/2024 7:49 AM Clinical history: Bilateral knee pain Comparison: 02/14/2015 left knee Technique: Upright AP and lateral views of each knee. Bilateral sunriseviews. Findings: On the left, medial and lateral joint spaces appear withinnormal limits. No evidence of marginal osseous defects. Patellofemoraljoint space appears unremarkable. Chronic appearing enthesophyte at thepatellar tendon insertion on the patella. No evidence of fracture oracute osseous abnormality. No radiographic evidence of joint effusion.Tiny hypertrophic spur dorsal superior patella. On the right, chronic-appearing enthesophyte patellar tendon insertion onthe patella and the quadriceps tendon insertion on the patella. Tinyhypertrophic spur dorsal superior patella. Medial and lateral jointspaces appear within normal limits. Patellofemoral joint space appearsunremarkable. No evidence of fracture or acute osseous abnormality. IMPRESSION: 1. No acute abnormality identified involving either knee. 2. Chronic changes as described. Referred By: Interpreted By: Skyler Soria MD, 07/08/2024 7:52 AM us Mendoza Luna PA-C GENERAL IMAGING Final Result * XR KNEE RT 3V (07/08/2024 7:49 AM CONSTRUCTION CREW MEMBER) Anatomical Region Laterality Modality Knee Radiographic Aminata ging 07/08/2024 7:49 AM CONSTRUCTION CREW MEMBER Narrative 07/08/2024 7:56 AM CONSTRUCTION CREW MEMBER Examination: XR KNEE LT 3V, XR KNEE RT 3V Exam time: 07/08/2024 7:49 AM Clinical history: Bilateral knee pain Comparison: 02/14/2015 left knee Technique: Upright AP and lateral views of each knee. Bilateral sunrise views. Findings: On the left, medial and lateral joint spaces appear within normal limits. No evidence of marginal osseous defects. Patellofemoral joint space appears unremarkable. Chronic appearing enthesophyte at the patellar tendon insertion on the patella. No evidence of fracture or acute osseous abnormality. No radiographic evidence of joint effusion. Tiny hypertrophic spur dorsal superior patella. On the right, chronic-appearing enthesophyte patellar tendon insertion on the patella and the quadriceps tendon insertion on the patella. Tiny hypertrophic spur dorsal superior patella. Medial and lateral joint spaces appear within normal limits. Patellofemoral joint space appears unremarkable. No evidence of fracture or acute osseous abnormality. IMPRESSION: 1. No acute abnormality identified involving either knee. 2. Chronic changes as described. Referred By: Interpreted By: Skyler Soria MD, 07/08/2024 7:52 AM Procedure Note Skyler Soria MD - 07/08/2024 Examination: XR KNEE LT 3V, XR KNEE RT 3V Exam time: 07/08/2024 7:49 AM Clinical history: Bilateral knee pain Comparison: 02/14/2015 left knee Technique: Upright AP and lateral views of each knee. Bilateral sunriseviews. Findings: On the left, medial and lateral joint spaces appear withinnormal limits. No evidence of marginal osseous defects. Patellofemoraljoint space appears unremarkable. Chronic appearing enthesophyte at thepatellar tendon insertion on the patella. No evidence of fracture oracute osseous abnormality. No radiographic evidence of joint effusion.Tiny hypertrophic spur dorsal superior patella. On the right, chronic-appearing enthesophyte patellar tendon insertion onthe patella and the quadriceps tendon insertion on the patella. Tinyhypertrophic spur dorsal superior patella. Medial and lateral jointspaces appear within normal limits. Patellofemoral joint space appearsunremarkable. No evidence of fracture or acute osseous abnormality. IMPRESSION: 1. No acute abnormality identified involving either knee. 2. Chronic changes as described. Referred By: Interpreted By: Skyler Soria MD, 07/08/2024 7:52 AM Mendoza Luna PA-C GENERAL IMAGING Final Result from Last 3 Months Insurance [employer] Care Teams Information Technology Manager Relationship Specialty Start Date End Date Justin Myles MD [address] [place] [address] (work) PCP - General INTERNAL MEDICINE 04/22/24
--- OUTSIDE RECORDS SUMMARY | 2024-08-30 11:24 | XMS_ITS | Clinical Summary ---
Author Organization [facility] the [facility] Office [place] Address [address] [place] [address] Care Team Providers Care Wave Guide Assembler Name Role Phone Justin Myles MD Primary Care Provider [phone] Allergies Active Allergy Reactions Criticality Noted Date Comments Iodinated Contrast Media Unknown High 10/26/2018 Niacin Unknown 10/26/2018 Prednisone Unknown High 10/26/2018 Sertraline Unknown Medium 01/16/2024 Nightmares Medications fluticasone propionate (FLONASE) 50 mcg/actuation nasal spray 1 spray daily Active omega 4-lvr-ezo-fish oil 1,000 mg (120 mg-180 mg) capsule [...] 03/22/2024 Assessment & Plan (03/22/2024 8:54 AM SALES AND CATERING COORDINATOR): Patient has hidradenitis. The lesions in the right axillary area are healing well and now he has new lesion in the left axillary area. We will start him on doxycycline 100 mg b.i.d. for 10 days and advised to keep the area dry all the time and will make him a referral to see a cell installer for further management of hidradenitis Abscess 03/08/2024 Assessment & Plan (03/08/2024 12:15 PM SALES AND CATERING COORDINATOR): Patient has an abscess in the right [...] treated liquid nitrogen. Patient is followed by cell installer on a regular basis. Assessment & Plan [...] symptoms Assessment & Plan (06/15/2019 9:29 AM SALES AND CATERING COORDINATOR): The patient has upper respiratory infection and [...] risk including cancer. Advised to call the sheet rock installer office and schedule an appointment. Assessment & Plan (07/03/2021 8:32 AM SALES AND CATERING COORDINATOR): We will order colo guard test again. He understands risk of cancer Assessment & Plan (07/03/2020 8:51 AM SALES AND CATERING COORDINATOR): We ordered colo guard test again Assessment & Plan (01/04/2020 9:54 AM CDT): The patient was advised to do the Cologuard test as soon as possible and he understands the risk of colon cancer Assessment & Plan (06/15/2019 9:30 AM SALES AND CATERING COORDINATOR): The patient declined colonoscopy. We ordered colo [...] minutes. Assessment & Plan (07/03/2021 8:34 AM SALES AND CATERING COORDINATOR): Discussed smoking cessation and different methods to [...] minutes. Assessment & Plan (07/03/2020 8:51 AM SALES AND CATERING COORDINATOR): Discussed smoking cessation and different methods to [...] minutes. Assessment & Plan (06/15/2019 9:29 AM SALES AND CATERING COORDINATOR): The patient said that he smokes less [...] relief Assessment & Plan (07/03/2021 8:34 AM SALES AND CATERING COORDINATOR): Patient takes tramadol on occasional basis with good relief Assessment & Plan (01/03/2021 8:46 AM CDT): He takes tramadol as needed with good relief relief Assessment & Plan (07/03/2020 8:51 AM SALES AND CATERING COORDINATOR): Patient uses tramadol on occasional basis with [...] basis Assessment & Plan (07/03/2021 8:33 AM SALES AND CATERING COORDINATOR): He does not use CPAP machine. He understands risks including congestive heart failure Assessment & Plan (01/03/2021 8:46 AM CDT): Patient does not use CPAP machine and he understands the risks Assessment & Plan (07/03/2020 8:51 AM SALES AND CATERING COORDINATOR): Patient with history of obstructive sleep apnea. He does not use CPAP machine. He is not interested. He understands risks. S/P coronary artery stent placement 11/13/2015 CAD (coronary artery disease) 11/08/2015 Assessment & Plan (07/15/2024 7:20 AM CDT): Status post stent placement. Continue current medications. Follow up with the mash preparatory operator Assessment & Plan (01/16/2024 8:58 AM CDT): Status post stent placement. Continue current medications. Follow up with the mash preparatory operator Assessment & Plan (07/15/2023 4:59 PM CDT): Status post stent placement. Continue current medications. Follow up with the mash preparatory operator Assessment & Plan (01/15/2023 7:51 AM CDT): Status post stent placement. Continue current medications. Follow up with the mash preparatory operator Assessment & Plan (07/15/2022 7:49 AM CDT): Status post stent placement. Continue current medications. Follow up with the mash preparatory operator Assessment & Plan (01/15/2022 8:56 AM CDT): Status post stent placement. Continue current medications. Follow up with the mash preparatory operator Assessment & Plan (07/03/2021 8:32 AM SALES AND CATERING COORDINATOR): Status post stent placement. Continue aspirin and Plavix. Advised to follow up with the mash preparatory operator. Discussed importance of smoking cessation Assessment & Plan (01/03/2021 8:46 AM CDT): Status post angioplasty. He is on aspirin and Plavix. Advised to follow-up with mash preparatory operator Assessment & Plan (07/03/2020 8:50 AM SALES AND CATERING COORDINATOR): Status post stent placement. Discussed compliance with medications. Patient is followed by the mash preparatory operator. Assessment & Plan (01/04/2020 9:53 AM CDT): Status post stent placement have. He is maintained on aspirin and Plavix and followed by the mash preparatory operator. He is asymptomatic. We discussed smoking cessation Assessment & Plan (06/15/2019 9:29 AM SALES AND CATERING COORDINATOR): Status post stent placement 7 years ago. [...] . Assessment & Plan (07/03/2021 8:32 AM SALES AND CATERING COORDINATOR): Controlled on current medications. Continue low-fat diet. Will continue to monitor . Assessment & Plan (01/03/2021 8:46 AM CDT): Controlled on current medications. Continue low-fat diet. Will continue to monitor . Assessment & Plan (07/03/2020 8:50 AM SALES AND CATERING COORDINATOR): Controlled on current medications. Continue low-fat diet. Will continue to monitor . Assessment & Plan (01/04/2020 9:53 AM CDT): Controlled on current medications. Continue low-fat diet. Will continue to monitor . Advised to do the blood work as soon as possible. Discussed the risk of noncompliance with medical recommendations Assessment & Plan (06/15/2019 9:29 AM SALES AND CATERING COORDINATOR): Controlled on current medications. Continue low-fat diet. [...] monitor Assessment & Plan (07/03/2021 8:33 AM SALES AND CATERING COORDINATOR): Continue current medications. Discussed low-salt diet. Discussed exercise on regular basis. Will continue to monitor Assessment & Plan (01/03/2021 8:46 AM CDT): Continue current medications. Discussed low-salt diet. Discussed exercise on regular basis. Will continue to monitor Assessment & Plan (07/03/2020 8:51 AM SALES AND CATERING COORDINATOR): Continue current medications. Discussed low-salt diet. Discussed exercise on regular basis. Will continue to monitor Assessment & Plan (01/04/2020 9:53 AM CDT): Continue current medications. Discussed low-salt diet. Discussed exercise on regular basis. Will continue to monitor Allergic rhinitis 09/14/2015 Assessment & Plan (07/03/2021 8:33 AM SALES AND CATERING COORDINATOR): He uses Flonase on regular basis with good results Resolved Problems Problem Noted Date Diagnosed Date Resolved Date Smoking 11/13/2015 02/24/2019 Overview (01/26/2019): Counseled for smoking cessation Encounters Date Type Department Care Team Description 08/17/2024 Results Follow-Up [facility] Internal Medicine [address] [place] [phone] Justin Myles MD 08/10/2024 Orders Only [facility] Health Information Management [address] [place] [phone] Justin Myles MD 08/10/2024 Telephone [facility] Internal Medicine [address] [place] [phone] Justin Myles MD Medication Request 07/15/2024 8:00 AM CDT Office Visit [facility] Internal Medicine [address] [place] [phone] Justin Myles MD Coronary artery disease involving rampart coronary artery of rampart heart without angina pectoris (Primary Dx); Dyslipidemia; Hypertension, essential; Obstructive sleep apnea; Tobacco abuse; Screening for lung cancer; Anxiety; Prostate cancer screening; Actinic keratosis; Common cold; Primary osteoarthritis of both knees 07/08/2024 Orders Only [facility] Health Information Management [address] [place] [phone] Justin Myles MD from Last 3 Months Immunizations Immunization Administration Dates Next Due DTaP 11/15/2013 Influenza, Unspecified 03/08/2024(Deferr ed: Patient decision),02/06/2023(Deferred: Patient decision),01/15/2023(Deferred: Patient decision) Surgical History Surgery Date Site/Laterality Comments CORONARY STENT PLACEMENT 05/05/2012 - 06/04/2012 SPINE SURGERY lumbar spine x 2, cervical spine LIPOMA RESECTION Left shoulder blade - Dr Seaman Medical History Medical History Date Comments CAD (coronary artery disease) HTN (hypertension) HLD (hyperlipidemia) Osteoarthritis of knees, bilateral Allergic rhinitis Sinusitis Plantar fasciitis Myocardial infarction (HCC) Dyslipidemia H/O cardiomyopathy KURT (obstructive sleep apnea) Family History Relation Name Status Comments Father Mother Social History Tobacco Use Types Packs/Day Years [...] on file Legal Sex Male 4:28 PM SALES AND CATERING COORDINATOR Gender Identity Male 08/19/2023 5:41 PM CDT Sexual Orientation Not on file Obstetrics History Last Filed Vital Signs Vital Sign Reading [...] 07/15/2024 8:24 AM CDT Plan of Treatment Health Maintenance Due Date Last Done Comments Hepatitis B Screening 1984 Lung Cancer Screening 2016 Prostate Cancer Screening-PSA 07/14/20254, 01/10/2022, 03/06/2018 Depression Screening 07/15/2025 07/15/2024, 03/08/2024, 01/16/2024, Additional history exists Regular Well Visit/Exam 18-64 07/15/2025 07/15/2024 Colon Cancer Screening-DNA Stool 08/13/2026 08/14/19 24 DTaP/Tdap/Td Vaccine Discontinued 11/15/2013 Colon Cancer Screening-FIT Discontinued 08/14/2023 Hepatitis C Screening Completed 01/16/2024 Influenza Vaccine Discontinued Pneumococcal vaccine <65 Discontinued Zoster Vaccine Discontinued Procedures Procedure Name Priority Date/Time Associated Diagnosis [...] 9:21 AM CDT 01/16/2024 9:45 AM CDT Justin Myles MD LAB MICROBIOLOGY - GENERAL ORDERABLES Final Result [facility] [address] [facility] Department [place] [address] * Stool DNA - Cologuard (08/14/2023 7:05 AM CDT) Stool DNA - Cologuard Negative Negative [facility] (CLIA #:[id number]) Comment: NEGATIVE TEST RESULT. A negative Cologuard [...] (Leanna Ramos al, N Engl J Med 2014;370(14):5739-6268) The normal value (reference range) for this assay is negative. COLOGUARD RE-SCREENING RECOMMENDATION: Periodic colorectal cancer screening is an important part of preventive healthcare for asymptomatic individuals at average risk for colorectal cancer. Following a negative Cologuard result, the [place] Cancer Society and U.S. Multi-Society Task Force screening guidelines recommend a Cologuard re-screening interval of 3 years. References: [place] Cancer Society Guideline for Colorectal Cancer Screening: https://www.cancer.org/cancer/hbhjb-znfgdv-kmzqiv/lmoeunjvo-hzoehlzsi-afllpwg/ac s-rec ommendations.html.; Guido DK, Savana CR, Nicki BrunoK, Colorectal Cancer Screening: Recommendations for Physicians and Patients from the U.S. Multi-Society Task Force on Colorectal Cancer Screening , Am J Gastroenterology 2017; 112:8886-5558. TEST DESCRIPTION: Composite algorithmic analysis of stool [...] (Leanna Ramos al, N Engl J Med 2014;370(14):1446-6956.) Cologuard may produce a false negative or false positive result (no colorectal cancer or precancerous polyp present at colonoscopy follow up). A negative Cologuard test result does not guarantee the absence of CRC or advanced adenoma (pre-cancer). The current Cologuard screening interval is every 3 years. (Australian Cancer Society and U.S. Multi-Society Task Force). Cologuard performance data in a 10,000 patient pivotal study using colonoscopy as the reference method can be accessed at the following location: www.WinFreeCandy/results. Additional description of the Cologuard test process, warnings and precautions can be found at www.Vocentrd.com. Stool 08/14/2023 7:05 AM CDT 08/15/2023 10:18 AM CDT Justin Myles MD LAB BODY FLUIDS AND STOOLS ORDERABLES Final Result Performing Organization Address City/State/[facility] Co de Phone Number [facility] (CLIA #:[id number]) [place] [address] * PSA screen (07/15/2023 6:12 AM CDT) [...] Myles MD LAB BLOOD ORDERABLES Final Result Performing Organization Address [facility] de Phone Number [facility] [phone] [facility] Department [place] [address] from Last 3 Months or Most Recently Relevant to Health Maintenance Insurance [facility] [employer] MEDICARE GOLD Care Teams Wave Guide Assembler Relationship Specialty Start Date End Date Justin Myles MD [address] [place] [address] PCP - General Internal Medicine 07/27/18
--- OUTSIDE RECORDS SUMMARY | 2024-08-30 11:24 | XMS_ITS | Encounter Summary ---
Author Organization [facility] Facility Care Team Providers Care Shell Grader Name Role Phone Justin Myles MD Primary Care Provider [phone] Encounter Details Date Type Department Care Team (Latest Contact Info) Description 06/14/2014 Orders Only [facility] ProviderEduardo MD [address] [place], [place] [id number] Social History Tobacco Use Types Packs/Day Years Used Date Smoking Tobacco: Never Assessed Sex and Gender Information Value Date Recorded Sex Assigned at Not on file Legal Sex Male 4:28 PM BEEF CATTLE GRAZIER Gender Identity Male 08/19/2023 5:41 PM CDT Sexual Orientation Not on file documented as of this encounter Plan of Treatment Not on file documented as of this encounter Procedures Procedure Name Priority Date/Time Associated Diagnosis Comments SCAN - LABS 11/08/2015 12:00 AM CDT documented in this encounter Results * SCAN - LABS (11/08/2015 12:00 AM CDT) Narrative 11/08/2015 12:00 AM CDT Ordered by an unspecified provider. Historical Provider Final Res ult documented in this encounter Visit Diagnoses Not on filedocumented in this encounter Care Teams Shell Grader Relationship Specialty Start Date End Date Justin Myles MD [address] [place] [address] PCP - General Internal Medicine 07/27/18 documented as of this encounter
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
[2024-08-30] MEDS: ACETAMINOPHEN 500 MG TABLET 1000 MG PO (12:36)
[2024-08-30] MEDS: TETANUS,DIPHTHERIA,AC PERTUSSIS ADULT (0.5 ML) BOOSTRIX IM (12:38)
[2024-08-30 13:04] VITALS: BP 137/84; PULSE 74; RESP 18; O2SAT 99
--- OUTSIDE RECORDS SUMMARY | 2024-08-30 14:13 | XMS_ITS | Referral Summary ---
Author Organization [facility] Address [address] [place] [phone] Care Team Providers Care Inspector Heating And Refrigeration Name Role Phone Justin Myles MD Primary Care Provider [phone] Encounters Date Type Department Care Team Description 08/17/2024 Results Follow-Up [facility] Medical [facility] Internal Medicine [address] [place] [phone] Justin Myles MD 08/10/[address] [facility] Health Information Management [address] [place] [address] Justin Myles MD 08/10/2024 Telephone [facility] Medical [facility] Internal Medicine [address] [place] [phone] Justin Myles MD Medication Request 07/15/2024 8:00 AM CDT Office Visit [facility] Medical [facility] Internal Medicine [address] [place] [phone] Justin Myles MD Coronary artery disease involving [place] coronary artery of [place] heart without angina pectoris (Primary Dx); Dyslipidemia; Hypertension, essential; Obstructive sleep apnea; Tobacco abuse; Screening for lung cancer; Anxiety; Prostate cancer screening; Actinic keratosis; Common cold; Primary osteoarthritis of both knees 07/08/[address] [facility] Health Information Management [address] [place] [address] Justin Myles MD from Last 3 Months Allergies Active Allergy Reactions Criticality Noted Date Comments Iodinated Contrast Media Unknown High 10/26/2018 Niacin Unknown 10/26/2018 Prednisone Unknown High 10/26/2018 Sertraline Unknown Medium 01/16/2024 Nightmares Medications fluticasone propionate (FLONASE) 50 mcg/actuation nasal spray 1 spray daily Active omega 7-xyr-tuu-fish oil 1,000 mg (120 mg-180 mg) capsule [...] 03/22/2024 Assessment & Plan (03/22/2024 8:54 AM ASSEMBLER TRACTOR): Patient has hidradenitis. The lesions in the right axillary area are healing well and now he has new lesion in the left axillary area. We will start him on doxycycline 100 mg b.i.d. for 10 days and advised to keep the area dry all the time and will make him a referral to see a first beater for further management of hidradenitis Abscess 03/08/2024 Assessment & Plan (03/08/2024 12:15 PM ASSEMBLER TRACTOR): Patient has an abscess in the right [...] treated liquid nitrogen. Patient is followed by first beater on a regular basis. Assessment & Plan [...] symptoms Assessment & Plan (06/15/2019 9:29 AM ASSEMBLER TRACTOR): The patient has upper respiratory infection and [...] risk including cancer. Advised to call the survey cad technician office and schedule an appointment. Assessment & Plan (07/03/2021 8:32 AM ASSEMBLER TRACTOR): We will order colo guard test again. He understands risk of cancer Assessment & Plan (07/03/2020 8:51 AM ASSEMBLER TRACTOR): We ordered colo guard test again Assessment & Plan (01/04/2020 9:54 AM CDT): The patient was advised to do the Cologuard test as soon as possible and he understands the risk of colon cancer Assessment & Plan (06/15/2019 9:30 AM ASSEMBLER TRACTOR): The patient declined colonoscopy. We ordered colo [...] minutes. Assessment & Plan (07/03/2021 8:34 AM ASSEMBLER TRACTOR): Discussed smoking cessation and different methods to [...] minutes. Assessment & Plan (07/03/2020 8:51 AM ASSEMBLER TRACTOR): Discussed smoking cessation and different methods to [...] minutes. Assessment & Plan (06/15/2019 9:29 AM ASSEMBLER TRACTOR): The patient said that he smokes less [...] relief Assessment & Plan (07/03/2021 8:34 AM ASSEMBLER TRACTOR): Patient takes tramadol on occasional basis with good relief Assessment & Plan (01/03/2021 8:46 AM CDT): He takes tramadol as needed with good relief relief Assessment & Plan (07/03/2020 8:51 AM ASSEMBLER TRACTOR): Patient uses tramadol on occasional basis with [...] basis Assessment & Plan (07/03/2021 8:33 AM ASSEMBLER TRACTOR): He does not use CPAP machine. He understands risks including congestive heart failure Assessment & Plan (01/03/2021 8:46 AM CDT): Patient does not use CPAP machine and he understands the risks Assessment & Plan (07/03/2020 8:51 AM ASSEMBLER TRACTOR): Patient with history of obstructive sleep apnea. He does not use CPAP machine. He is not interested. He understands risks. S/P coronary artery stent placement 11/13/2015 CAD (coronary artery disease) 11/08/2015 Assessment & Plan (07/15/2024 7:20 AM CDT): Status post stent placement. Continue current medications. Follow up with the hammer fitter Assessment & Plan (01/16/2024 8:58 AM CDT): Status post stent placement. Continue current medications. Follow up with the hammer fitter Assessment & Plan (07/15/2023 4:59 PM CDT): Status post stent placement. Continue current medications. Follow up with the hammer fitter Assessment & Plan (01/15/2023 7:51 AM CDT): Status post stent placement. Continue current medications. Follow up with the hammer fitter Assessment & Plan (07/15/2022 7:49 AM CDT): Status post stent placement. Continue current medications. Follow up with the hammer fitter Assessment & Plan (01/15/2022 8:56 AM CDT): Status post stent placement. Continue current medications. Follow up with the hammer fitter Assessment & Plan (07/03/2021 8:32 AM ASSEMBLER TRACTOR): Status post stent placement. Continue aspirin and Plavix. Advised to follow up with the hammer fitter. Discussed importance of smoking cessation Assessment & Plan (01/03/2021 8:46 AM CDT): Status post angioplasty. He is on aspirin and Plavix. Advised to follow-up with hammer fitter Assessment & Plan (07/03/2020 8:50 AM ASSEMBLER TRACTOR): Status post stent placement. Discussed compliance with medications. Patient is followed by the hammer fitter. Assessment & Plan (01/04/2020 9:53 AM CDT): Status post stent placement have. He is maintained on aspirin and Plavix and followed by the hammer fitter. He is asymptomatic. We discussed smoking cessation Assessment & Plan (06/15/2019 9:29 AM ASSEMBLER TRACTOR): Status post stent placement 7 years ago. [...] . Assessment & Plan (07/03/2021 8:32 AM ASSEMBLER TRACTOR): Controlled on current medications. Continue low-fat diet. Will continue to monitor . Assessment & Plan (01/03/2021 8:46 AM CDT): Controlled on current medications. Continue low-fat diet. Will continue to monitor . Assessment & Plan (07/03/2020 8:50 AM ASSEMBLER TRACTOR): Controlled on current medications. Continue low-fat diet. Will continue to monitor . Assessment & Plan (01/04/2020 9:53 AM CDT): Controlled on current medications. Continue low-fat diet. Will continue to monitor . Advised to do the blood work as soon as possible. Discussed the risk of noncompliance with medical recommendations Assessment & Plan (06/15/2019 9:29 AM ASSEMBLER TRACTOR): Controlled on current medications. Continue low-fat diet. [...] monitor Assessment & Plan (07/03/2021 8:33 AM ASSEMBLER TRACTOR): Continue current medications. Discussed low-salt diet. Discussed exercise on regular basis. Will continue to monitor Assessment & Plan (01/03/2021 8:46 AM CDT): Continue current medications. Discussed low-salt diet. Discussed exercise on regular basis. Will continue to monitor Assessment & Plan (07/03/2020 8:51 AM ASSEMBLER TRACTOR): Continue current medications. Discussed low-salt diet. Discussed exercise on regular basis. Will continue to monitor Assessment & Plan (01/04/2020 9:53 AM CDT): Continue current medications. Discussed low-salt diet. Discussed exercise on regular basis. Will continue to monitor Allergic rhinitis 09/14/2015 Assessment & Plan (07/03/2021 8:33 AM ASSEMBLER TRACTOR): He uses Flonase on regular basis with [...] on file Legal Sex Male 4:28 PM ASSEMBLER TRACTOR Gender Identity Male 08/19/2023 5:41 PM CDT [...] LAB MICROBIOLOGY - GENERAL ORDERABLES Final Result [facility] [address] [facility] [place] [address] * Stool DNA - Cologuard (08/14/2023 7:05 AM CDT) Pathologist [facility] [place] Stool DNA - Cologuard Negative Negative [employer] (CLIA #:[id number]) Comment: NEGATIVE TEST RESULT. A negative Cologuard [...] Michael et al, N Engl J Med 2014;370(14):1731-1963) The normal value (reference range) for this assay is negative. COLOGUARD RE-SCREENING RECOMMENDATION: Periodic colorectal cancer screening is an important part of preventive healthcare for asymptomatic individuals at average risk for colorectal cancer. Following a negative Cologuard result, the [place] [employer] and U.S. Multi-Society Task Force screening guidelines recommend a Cologuard re-screening interval of 3 years. References: [place] [employer] Guideline for Colorectal Cancer Screening: https://www.cancer.org/cancer/kdsmm-duwqzu-rkyyex/qcfovqvbz-dadjivnts-qlbxbmd/ac s-rec ommendations.html.; Guido DK, Savana RUFFIN, Nicki BrunoK, Colorectal Cancer Screening: Recommendations for Physicians and Patients from the U.S. Multi-Society Task Force on Colorectal Cancer Screening , Am J Gastroenterology 2017; 112:9401-0828. TEST DESCRIPTION: Composite algorithmic analysis of stool [...] (Leanna Ramos al, N Engl J Med 2014;370(14):0574-4562.) Cologuard may produce a false negative or false positive result (no colorectal cancer or precancerous polyp present at colonoscopy follow up). A negative Cologuard test result does not guarantee the absence of CRC or advanced adenoma (pre-cancer). The current Cologuard screening interval is every 3 years. ([place] [employer] Society and U.S. Multi-Society Task Force). Cologuard performance data in a 10,000 patient pivotal study using colonoscopy as the reference method can be accessed at the following location: www.misterbnb/results. Additional description of the Cologuard test process, warnings and precautions can be found at www.cologInfotone Communicationsrd.com. Stool 08/14/2023 7:05 AM CDT 08/15/2023 10:18 AM CDT Justin Myles MD LAB BODY FLUIDS AND STOOLS ORDERABLES Final Result [employer] [employer] (CLIA #:[id number]) [place] [address] * PSA screen (07/15/2023 6:12 AM CDT) [...] BLOOD ORDERABLES Final Result [facility] [address] [facility] [place] [address] from Last 3 Months or Most Recently Relevant to Health Maintenance Insurance [facility] [employer]ETNA MEDICARE GOLD Care Teams Inspector Heating And Refrigeration Relationship Specialty Start Date End Date Justin Myles MD [address] [address] PCP - General Internal Medicine 07/27/18
--- OUTSIDE RECORDS SUMMARY | 2024-08-30 14:13 | XMS_ITS | Clinical Summary ---
Author Organization [facility] Address [address] [place] [address] Care Team Providers Care Operations Supervisor 2Nd Shift Name Role Phone Justin Myles MD Primary Care Provider [phone] Allergies Active Allergy Reactions Criticality Noted Date Comments Gadolinium Derivatives Unknown 04/19/2015 Iodinated Contrast Media Unknown High 10/26/2018 Niacin Unknown 10/26/2018 Prednisone Unknown High 10/26/2018 Sertraline Unknown Medium 01/16/2024 Nightmares Medications albuterol sulfate HFA 108 (90 Base) MCG/ACT inhaler INHALE 2 PUFFS BY MOUTH EVERY 8 HOURS NEEDED FOR WHEEZING 4 Active aspirin 325 MG tablet Aspirin 325 MG Oral [id number] 15Active Active clopidogrel (PLAVIX) 75 MG tablet [...] Cap capsule Fish Oil 1000 MG Oral [id number] 015Active Active ramipril (ALTACE) 5 MG capsule [...] Description 08/17/2024 7:40 AM CDT Office Visit [facility] [place] [address] [place] [address] Mendoza Luna PA-C Follow Up (BL Knee Euflexxa 3) 08/17/2024 Scan [facility] INFO SRVCS Scanned, [facility] 08/17/2024 Travel 08/10/2024 7:40 AM CDT Office Visit [facility] [place] [address] [place] [address] Mendoza Luna PA-C Follow Up (BL Knee Euflexxa 2) 08/10/2024 Scan [facility] INFO SRVCS Scanned, Doc [facility] 08/10/2024 Travel 08/06/2024 Orders Only [facility] [place] [address] [place] [address] Mendoza Luna PA-C 08/03/2024 7:40 AM CDT Office Visit [facility] [place] [address] [place] [address] Mendoza Luna PA-C Follow Up (BL Knees Euflexxa 1) 08/03/2024 Orders Only [facility] [place] [address] [place] [address] Mendoza Luna PA-C 08/03/2024 Scan [facility] INFO SRVCS Scanned, Doc [facility] 08/03/2024 Travel 07/08/2024 8:00 AM ECHOCARDIOLOGIST Office Visit [facility] [place] [address] [place] [address] Mendoza Luna PA-C New Patient (Bilateral knees) 07/08/2024 Scan [facility] INFO SRVCS Scanned, Doc [facility] 07/08/2024 Travel 07/01/2024 Orders Only [facility] [place] [address] [place] [address] Mendoza Luna PA-C from Last 3 Months [...] Sex Assigned at Male 07/08/2024 8:10 AM ECHOCARDIOLOGIST Legal Sex Male 7:26 PM CDT Gender [...] - 2023-2 5 season) 2024 PHQ-2 (Physician [place]) Completed 08/03/2024 Meningococcal B Vaccine Aged Out [...] KNEE LT 3V Routine 07/08/2024 7:49 AM ECHOCARDIOLOGIST Pain in both knees, unspecified chronicity XR KNEE RT 3V Routine 07/08/2024 7:49 AM ECHOCARDIOLOGIST Pain in both knees, unspecified chronicity from [...] XR KNEE LT 3V (07/08/2024 7:49 AM ECHOCARDIOLOGIST) Anatomical Region Laterality Modality Knee Radiographic Aminata ging 07/08/2024 7:49 AM ECHOCARDIOLOGIST Narrative 07/08/2024 7:56 AM ECHOCARDIOLOGIST Examination: XR KNEE LT 3V, XR KNEE [...] XR KNEE RT 3V (07/08/2024 7:49 AM ECHOCARDIOLOGIST) Anatomical Region Laterality Modality Knee Radiographic Aminata ging 07/08/2024 7:49 AM ECHOCARDIOLOGIST Narrative 07/08/2024 7:56 AM ECHOCARDIOLOGIST Examination: XR KNEE LT 3V, XR KNEE [...] as described. Referred By: Interpreted By: Skyler Soira MD, 07/08/2024 7:52 AM [place] Luna PA-C GENERAL IMAGING Final Result from Last 3 Months Insurance [employer] Care Teams Operations Supervisor 2Nd Shift Relationship Specialty Start Date End Date Justin Myles MD [address] [place] [address] (work) PCP - General INTERNAL MEDICINE 04/22/24
--- OUTSIDE RECORDS SUMMARY | 2024-08-30 14:13 | XMS_ITS | Encounter Summary ---
Author Organization [facility] Healthcare Address [address] [place] [address] Care Team Providers Care Mobile Phone Salesperson Name Role Phone Justin Myles MD Primary Care Provider [phone] Encounter Details Date Type Department Care Team (Late st Contact Info) Description 08/17/2024 Results Follow-Up [facility] Medical Group Internal Medicine [address] [place] [phone] Justin Myles MD [address] [place] [phone] Social History Tobacco Use Types Packs/Day [...] on file Legal Sex Male 4:28 PM COMPUTER SYSTEMS INTEGRATOR Gender Identity Male 08/19/2023 5:41 PM CDT Sexual Orientation Not on file documented as of this encounter Plan of Treatment Not on file documented as of this encounter Visit Diagnoses Not on filedocumented in this encounter Care Teams Mobile Phone Salesperson Relationship Specialty Start Date End Date Justin Myles MD [address] [address] [place] [address] [place] [id number] PCP - General Internal Medicine 07/27/18 documented as of this encounter
--- OUTSIDE RECORDS SUMMARY | 2024-08-30 14:13 | XMS_ITS | Encounter Summary ---
Author Organization [facility] Care Team Providers Care Personal Trainer Name Role Phone Justin Myles MD Primary Care Provider [phone] Encounter Details Date Type Department Care Team (Latest Contact Info) Description 06/14/2014 Orders Only [facility] ProviderEduardo MD [address] [place], [place] [id number] Social History Tobacco Use Types Packs/Day Years Used Date Smoking Tobacco: Never Assessed Sex and Gender Information Value Date Recorded Sex Assigned at Not on file Legal Sex Male 4:28 PM DIAGRAM CLERK Gender Identity Male 08/19/2023 5:41 PM CDT [...] on filedocumented in this encounter Care Teams Personal Trainer Relationship Specialty Start Date End Date Justin Myles MD [address] [place] [address] PCP - General Internal Medicine 07/27/18 documented as of this encounter
--- OUTSIDE RECORDS SUMMARY | 2024-08-30 14:13 | XMS_ITS | Clinical Summary ---
Author Organization [facility] at the [facility] [place] Address [address] [place] [address] Care Team Providers Care International Marketing Specialist Name Role Phone Justin Myles MD Primary Care Provider [phone] Allergies Active Allergy Reactions Criticality Noted Date Comments Iodinated Contrast Media Unknown High 10/26/2018 Niacin Unknown 10/26/2018 Prednisone Unknown High 10/26/2018 Sertraline Unknown Medium 01/16/2024 Nightmares Medications fluticasone propionate (FLONASE) 50 mcg/actuation nasal spray 1 spray daily Active omega 2-iuj-mts-fish oil 1,000 mg (120 mg-180 mg) capsule [...] 03/22/2024 Assessment & Plan (03/22/2024 8:54 AM AIRFRAME AND POWER PLANT MECHANIC): Patient has hidradenitis. The lesions in the right axillary area are healing well and now he has new lesion in the left axillary area. We will start him on doxycycline 100 mg b.i.d. for 10 days and advised to keep the area dry all the time and will make him a referral to see a trimmer tailer for further management of hidradenitis Abscess 03/08/2024 Assessment & Plan (03/08/2024 12:15 PM AIRFRAME AND POWER PLANT MECHANIC): Patient has an abscess in the right [...] treated liquid nitrogen. Patient is followed by trimmer tailer on a regular basis. Assessment & Plan [...] symptoms Assessment & Plan (06/15/2019 9:29 AM AIRFRAME AND POWER PLANT MECHANIC): The patient has upper respiratory infection and [...] including cancer. Advised to call the sheet mill supervisor office and schedule an appointment. Assessment & Plan (07/03/2021 8:32 AM AIRFRAME AND POWER PLANT MECHANIC): We will order colo guard test again. He understands risk of cancer Assessment & Plan (07/03/2020 8:51 AM AIRFRAME AND POWER PLANT MECHANIC): We ordered colo guard test again Assessment & Plan (01/04/2020 9:54 AM CDT): The patient was advised to do the Cologuard test as soon as possible and he understands the risk of colon cancer Assessment & Plan (06/15/2019 9:30 AM AIRFRAME AND POWER PLANT MECHANIC): The patient declined colonoscopy. We ordered colo [...] minutes. Assessment & Plan (07/03/2021 8:34 AM AIRFRAME AND POWER PLANT MECHANIC): Discussed smoking cessation and different methods to [...] minutes. Assessment & Plan (07/03/2020 8:51 AM AIRFRAME AND POWER PLANT MECHANIC): Discussed smoking cessation and different methods to [...] minutes. Assessment & Plan (06/15/2019 9:29 AM AIRFRAME AND POWER PLANT MECHANIC): The patient said that he smokes less [...] relief Assessment & Plan (07/03/2021 8:34 AM AIRFRAME AND POWER PLANT MECHANIC): Patient takes tramadol on occasional basis with good relief Assessment & Plan (01/03/2021 8:46 AM CDT): He takes tramadol as needed with good relief relief Assessment & Plan (07/03/2020 8:51 AM AIRFRAME AND POWER PLANT MECHANIC): Patient uses tramadol on occasional basis with [...] basis Assessment & Plan (07/03/2021 8:33 AM AIRFRAME AND POWER PLANT MECHANIC): He does not use CPAP machine. He understands risks including congestive heart failure Assessment & Plan (01/03/2021 8:46 AM CDT): Patient does not use CPAP machine and he understands the risks Assessment & Plan (07/03/2020 8:51 AM AIRFRAME AND POWER PLANT MECHANIC): Patient with history of obstructive sleep apnea. He does not use CPAP machine. He is not interested. He understands risks. S/P coronary artery stent placement 11/13/2015 CAD (coronary artery disease) 11/08/2015 Assessment & Plan (07/15/2024 7:20 AM CDT): Status post stent placement. Continue current medications. Follow up with the home health outreach coordinator Assessment & Plan (01/16/2024 8:58 AM CDT): Status post stent placement. Continue current medications. Follow up with the home health outreach coordinator Assessment & Plan (07/15/2023 4:59 PM CDT): Status post stent placement. Continue current medications. Follow up with the home health outreach coordinator Assessment & Plan (01/15/2023 7:51 AM CDT): Status post stent placement. Continue current medications. Follow up with the home health outreach coordinator Assessment & Plan (07/15/2022 7:49 AM CDT): Status post stent placement. Continue current medications. Follow up with the home health outreach coordinator Assessment & Plan (01/15/2022 8:56 AM CDT): Status post stent placement. Continue current medications. Follow up with the home health outreach coordinator Assessment & Plan (07/03/2021 8:32 AM AIRFRAME AND POWER PLANT MECHANIC): Status post stent placement. Continue aspirin and Plavix. Advised to follow up with the home health outreach coordinator. Discussed importance of smoking cessation Assessment & Plan (01/03/2021 8:46 AM CDT): Status post angioplasty. He is on aspirin and Plavix. Advised to follow-up with home health outreach coordinator Assessment & Plan (07/03/2020 8:50 AM AIRFRAME AND POWER PLANT MECHANIC): Status post stent placement. Discussed compliance with medications. Patient is followed by the home health outreach coordinator. Assessment & Plan (01/04/2020 9:53 AM CDT): Status post stent placement have. He is maintained on aspirin and Plavix and followed by the home health outreach coordinator. He is asymptomatic. We discussed smoking cessation Assessment & Plan (06/15/2019 9:29 AM AIRFRAME AND POWER PLANT MECHANIC): Status post stent placement 7 years ago. [...] . Assessment & Plan (07/03/2021 8:32 AM AIRFRAME AND POWER PLANT MECHANIC): Controlled on current medications. Continue low-fat diet. Will continue to monitor . Assessment & Plan (01/03/2021 8:46 AM CDT): Controlled on current medications. Continue low-fat diet. Will continue to monitor . Assessment & Plan (07/03/2020 8:50 AM AIRFRAME AND POWER PLANT MECHANIC): Controlled on current medications. Continue low-fat diet. Will continue to monitor . Assessment & Plan (01/04/2020 9:53 AM CDT): Controlled on current medications. Continue low-fat diet. Will continue to monitor . Advised to do the blood work as soon as possible. Discussed the risk of noncompliance with medical recommendations Assessment & Plan (06/15/2019 9:29 AM AIRFRAME AND POWER PLANT MECHANIC): Controlled on current medications. Continue low-fat diet. [...] monitor Assessment & Plan (07/03/2021 8:33 AM AIRFRAME AND POWER PLANT MECHANIC): Continue current medications. Discussed low-salt diet. Discussed exercise on regular basis. Will continue to monitor Assessment & Plan (01/03/2021 8:46 AM CDT): Continue current medications. Discussed low-salt diet. Discussed exercise on regular basis. Will continue to monitor Assessment & Plan (07/03/2020 8:51 AM AIRFRAME AND POWER PLANT MECHANIC): Continue current medications. Discussed low-salt diet. Discussed exercise on regular basis. Will continue to monitor Assessment & Plan (01/04/2020 9:53 AM CDT): Continue current medications. Discussed low-salt diet. Discussed exercise on regular basis. Will continue to monitor Allergic rhinitis 09/14/2015 Assessment & Plan (07/03/2021 8:33 AM AIRFRAME AND POWER PLANT MECHANIC): He uses Flonase on regular basis with good results Resolved Problems Problem Noted Date Diagnosed Date Resolved Date Smoking 11/13/2015 02/24/2019 Overview (01/26/2019): Counseled for smoking cessation Encounters Date Type Department Care Team Description 08/17/2024 Results Follow-Up [facility] Internal Medicine [address] [place] [phone] Justin Myles MD 08/10/2024 Orders Only [facility] Information Management [address] [place] [id number] Justin Myles MD 08/10/2024 Telephone [facility] Internal Medicine [address] [place] [phone] Justin Myles MD Medication Request 07/15/2024 8:00 AM CDT Office Visit [facility] Internal Medicine [address] [place] [phone] Justin Myles MD Coronary artery disease involving burns paiute coronary artery of burns paiute heart without angina pectoris (Primary Dx); Dyslipidemia; Hypertension, essential; Obstructive sleep apnea; Tobacco abuse; Screening for lung cancer; Anxiety; Prostate cancer screening; Actinic keratosis; Common cold; Primary osteoarthritis of both knees 07/08/2024 Orders Only [facility] Information Management [address] [place] [phone] Justin Myles MD from Last 3 Months [...] on file Legal Sex Male 4:28 PM AIRFRAME AND POWER PLANT MECHANIC Gender Identity Male 08/19/2023 5:41 PM CDT [...] MICROBIOLOGY - GENERAL ORDERABLES Final Result [facility] [id number] [facility] Department [place] [address] * Stool DNA - Cologuard (08/14/2023 7:05 AM CDT) Stool DNA - Cologuard Negative Negative ePrep (CLIA #:[id number]) Comment: NEGATIVE TEST RESULT. A negative Cologuard [...] (Leanna Ramos al, N Engl J Med 2014;370(14):6472-6514) The normal value (reference range) for this assay is negative. COLOGUARD RE-SCREENING RECOMMENDATION: Periodic colorectal cancer screening is an important part of preventive healthcare for asymptomatic individuals at average risk for colorectal cancer. Following a negative Cologuard result, the [place] [employer] and U.S. Multi-Society Task Force screening guidelines recommend a Cologuard re-screening interval of 3 years. References: [place] [employer] Guideline for Colorectal Cancer Screening: https://www.cancer.org/cancer/wyuwr-brxbeb-cxhnwh/mncuxobzw-xzbwzbbwq-iafpgna/ac s-rec ommendations.html.; Guido DK, Savana CR, Nicki BrunoK, Colorectal Cancer Screening: Recommendations for Physicians and Patients from the U.S. Multi-Society Task Force on Colorectal Cancer Screening , Am J Gastroenterology 2017; 112:8365-2805. TEST DESCRIPTION: Composite algorithmic analysis of stool [...] (Leanna Ramos al, N Engl J Med 2014;370(14):5939-1687.) Cologuard may produce a false negative or false positive result (no colorectal cancer or precancerous polyp present at colonoscopy follow up). A negative Cologuard test result does not guarantee the absence of CRC or advanced adenoma (pre-cancer). The current Cologuard screening interval is every 3 years. ([place] [employer] Society and U.S. Multi-Society Task Force). Cologuard performance data in a 10,000 patient pivotal study using colonoscopy as the reference method can be accessed at the following location: www.mLED/results. Additional description of the Cologuard test process, warnings and precautions can be found at www.AddFleetrd.com. Stool 08/14/2023 7:05 AM CDT 08/15/2023 10:18 AM CDT Justin Myles MD LAB BODY FLUIDS AND STOOLS ORDERABLES Final Result Performing Organization Address City/State/[facility] Co de Phone Number [facility] (CLIA #:[id number]) [place] [address] * PSA screen (07/15/2023 6:12 AM CDT) [...] BLOOD ORDERABLES Final Result Performing Organization Address [facility] de Phone Number [facility] [phone] [facility] [place] [address] from Last 3 Months or Most Recently Relevant to Health Maintenance Insurance [facility] [employer] MEDICARE GOLD Care Teams International Marketing Specialist Relationship Specialty Start Date End Date Justin Myles MD [address] [place] [address] PCP - General Internal Medicine 07/27/18
== END 2024-08-30 13:01 | disposition home or self-care (01) ==
LOC: ANHED 12:41
PROVIDERS: Emergency Provider Emergency Medicine; PCP Internal Medicine
DX: S93.401A Sprain of unspecified ligament of right ankle, initial encounter (principal); W18.09XA Striking against other object with subsequent fall, initial encounter; Z23 Encounter for immunization
CPT/HCPCS: 73610; 90471; 90715; 99283; A9270